=== PATIENT | female | born 1950 | race Caucasian/White ===

== ENCOUNTER 2017-06-11 02:44 | Emergency (ER) | payer BC ==
[~2017-06-11] VITALS: Ht 160 cm; Wt 97.5 kg
[2017-06-11 02:57] VITALS: Ht 160 cm; Wt 97.5 kg
[2017-06-11 03:52] LABS: BASOPHIL % 0.6 % (0-2); PLATELET COUNT 306 x10^3mcL (130-400); RED CELL DISTRIBUTION WIDTH 13.6 % (11.5-14.5)
[2017-06-11 04:16] LABS: CALCIUM 8.3 mg/dL (8.5-10.1); CARBON DIOXIDE 29.9 mmol/L (21-32); CREATININE SERUM 1.2 mg/dL (0.6-1.0); POTASSIUM SERUM 3.5 mmol/L (3.5-5.1)
[2017-06-11 04:21] LABS: ALBUMIN 3.3 g/dL (3.4-5.0); BILIRUBIN TOTAL 0.38 mg/dL (0.20-1.00); TOTAL PROTEIN, SERUM 6.8 g/dL (6.4-8.2)
[2017-06-11 05:07] VITALS: BP 126/44
== END 2017-06-11 05:07 | disposition home or self-care (01) ==
LOC: ED 02:44
PROVIDERS: Emergency Medicine
DX: J06.9 Acute upper respiratory infection, unspecified (principal); J98.01 Acute bronchospasm; I10 Essential (primary) hypertension
CPT/HCPCS: 36415; J7512; J7613; J7644; Q0092

== ENCOUNTER 2017-07-04 15:50 | Emergency (ER) | payer BC ==
[~2017-07-04] VITALS: Ht 160 cm; Wt 97.1 kg
[2017-07-04 15:57] VITALS: Ht 160 cm; Wt 97.1 kg
[2017-07-04 17:34] VITALS: BP 137/77
== END 2017-07-04 17:34 | disposition home or self-care (01) ==
LOC: ED 15:50
DX: J98.01 Acute bronchospasm (principal); I10 Essential (primary) hypertension
CPT/HCPCS: J7512; J7644